=== PATIENT | female | born 1990 ===

== ENCOUNTER 2019-04-01 14:14 | Inpatient (IN) | payer OTHER ==
[~2019-04-01] VITALS: Ht 160 cm; Wt 84.8 kg
[2019-04-01] MEDS ORDERED: PRENATAL TABLE1 EAC4 PO (14:28)
== END 2019-04-04 14:31 | disposition home or self-care (01) | DRG 807 ==
LOC: OBS/DEL 14:14 → LDR 17:55 → OB/GYN 19:33
PROVIDERS: ADMIT Obstetrics & Gynecology
PROC: 10E0XZZ Delivery of Products of Conception, External Approach (ICD-10-PCS; principal; 2019-04-01)
PROC: 10907ZC Drainage of Amniotic Fluid, Therapeutic from Products of Conception, Via Natural or Artificial Opening (ICD-10-PCS; 2019-04-01)
PROC: 4A1HXCZ Monitoring of Products of Conception, Cardiac Rate, External Approach (ICD-10-PCS; 2019-04-01)
DX: O80 Encounter for full-term uncomplicated delivery (principal); Z37.0 Single live birth; Z3A.38 38 weeks gestation of pregnancy